=== PATIENT | male | born 1990 | race Hispanic/Latino ===

== ENCOUNTER 2017-11-24 05:18 | Emergency (ER) | payer OTHER ==
[2017-11-24 05:49] LABS: Basophils % (Auto) 0.4 % (0.0-1.8); Eosinophils # (Auto) 0.2 K/mm3 (0.0-0.4); Hemoglobin 14.4 gm/dl (11.8-15.2); Lymphocytes # (Auto) 3.3 K/mm3 (1.2-5.4); Mean Corpuscular HGB Conc 34 % (32-34); Mean Corpuscular Hemoglobin 29 pg (28-32); Mean Corpuscular Volume 86 fl (84-94); Monocytes # (Auto) 0.7 K/mm3 (0.0-0.8); Monocytes % (Auto) 7.5 % (0.0-7.3); Platelet Count 209 K/mm3 (140-440); Red Blood Count 4.98 M/mm3 (3.65-5.03); Red Cell Distribution Width 12.8 % (13.2-15.2)
[2017-11-24 06:04] LABS: Bilirubin,Urine NEG (Negative); Blood,Urine NEG (Negative); Color,Urine Yellow (Yellow); Hyaline Casts,Urine 1 /LPF; Mucus,Urine 1+ /HPF; Protein,Urine <15 mg/dL mg/dL (Negative); Urobilinogen,Urine < 2.0 mg/dL (<2.0)
[2017-11-24 06:06] LABS: Alanine Aminotransferase 27 units/L (7-56); Albumin 4.4 g/dL (3.9-5); BUN/Creatinine Ratio 14; Blood Urea Nitrogen 17 mg/dL (9-20); Calcium 9.5 mg/dL (8.4-10.2); Hemolysis Index 2
[2017-11-24] MEDS ORDERED: LIDOCAINE VISCOUS 2% PO ONE (09:27)
[2017-11-24] MEDS ORDERED: ALUM-MAG HYDROX-SIMETH 200-200-20MG/5ML PO ONE (09:27)
--- NOTE | 2017-11-24 09:30 | Emergency Department Report ---
Chief Complaint: Abdominal Pain Stated Complaint: STOMACH PAIN Time Seen by Provider: 11/24/17 09:22 - HPI History of Present Illness: 27-year-old male presents to the emergency department with complaint of upper to left upper quadrant abdominal pain has been going on for the past week. He has had this issue in the past and says that it has been to this intensity 3 times in the past. He has been taking Bentyl and Protonix which was prescribed for him back in April for similar issues. He has had some nausea with one episode of vomiting. He denies any fever, back pain, dysuria, discharge. No recent travel or sick contacts at home. He does not know of any specific alleviating factors but diet sometimes makes it worse. He has not seen a bulb assembler. - ROS Review of Systems: Positive for abdominal pain, nausea, vomiting Negative for fever, back pain, dysuria, discharge - Exam Vital Signs: Vital Signs 11/24/17 11/24/17 11/24/17 05:17 05:25 09:13 Temperature 97.6 F 97.6 F Pulse Rate 61 61 Respiratory 18 17 16 Rate Blood Pressure 146/92 146/92 O2 Sat by Pulse 98 99 Oximetry Physical Exam: He is resting comfortably in no acute distress. Heart and lungs sounds are normal auscultation. No tenderness to palpation of the abdomen. Normal bowel sounds. MSE screening note: Focused history and physical exam performed. Due to findings the following was ordered: I have reviewed the patient's labs which are unremarkable including a CBC, BMP and urinalysis. He will receive a GI cocktail and will have a 2 view abdominal x-ray. He will need a gastroenterology referral for possible upper EGD and evaluation of Helicobacter pylori. ED Medical Decision Making - Lab Data Result diagrams: 11/24/17 05:06 11/24/17 05:06 ED Disposition for MSE Condition: Stable Referrals: PRIMARY CARE, [Primary Care Provider] - 3-5 Days
[2017-11-24 12:33] VITALS: BP 119/75
--- NOTE | 2017-11-24 12:36 | Emergency Department Report ---
ED Abdominal Pain HPI - General Chief Complaint: Abdominal Pain Stated Complaint: STOMACH PAIN Time Seen by Provider: 11/24/17 09:22 Source: patient Mode of arrival: Ambulatory Limitations: No Limitations - History of Present Illness Initial Comments: This is a 27-year-old male nontoxic, well nourished in appearance, no acute signs of distress presents to the ED with c/o of abdominal pain, nausea, and vomiting x1 week. Patient stated has history of this and was dignsoed with constipation. Patient stated that he has been very gassy and passing gas. Patient stated had a bowel movement yesterday and as very hard. Patient describes abdominal pain as cramping diffusely in the left upper quadrant. Patient stated had 1 episode of vomiting and was food content. Patient stated that he took Bentyl and Protonix with minimal relief. Patient denies any fever , chills, vaginal bleeding, vaginal discharge, urinary symptoms, chest pain, shortness of breathe, radiation of pain. Patient denies any allergies or PMH. MD Complaint: abdominal pain -: week(s) (1) Location: [facility] Radiation: none Migration to: no migration Severity: mild Severity scale (0 -10): 3 Quality: cramping Consistency: intermittent Improves With: nothing Worsens With: nothing Associated Symptoms: nausea, vomiting, constipation. denies: diarrhea, fever, chills, dysuria, hematemesis, hematochezia, melena, hematuria, anorexia, syncope - Related Data Previous Rx's Medication Instructions Recorded Last Taken Type Docusate Sodium [Colace] 100 mg PO BID PRN #30 capsule 11/24/17 Unknown Rx Ibuprofen [Motrin] 600 mg PO Q8H PRN #30 tablet 11/24/17 Unknown Rx Ondansetron [Zofran Odt] 4 mg PO Q8HR PRN #20 tab.rapdis 11/24/17 Unknown Rx Allergies Allergy/AdvReac Type Severity Reaction Status Date / Time No Known Allergies Allergy Unverified 11/24/17 05:28 ED Review of Systems ROS: Stated complaint: STOMACH PAIN Other details as noted in HPI Constitutional: denies: chills, fever Eyes: denies: eye pain, eye discharge, vision change ENT: denies: ear pain, throat pain Respiratory: denies: cough, shortness of breath, wheezing Cardiovascular: denies: chest pain, palpitations Endocrine: no symptoms reported Gastrointestinal: abdominal pain, nausea, vomiting, constipation. denies: diarrhea Genitourinary: denies: urgency, dysuria Musculoskeletal: denies: back pain, joint swelling, arthralgia Skin: denies: rash, lesions Neurological: denies: headache, weakness, paresthesias Psychiatric: denies: anxiety, depression Hematological/Lymphatic: denies: easy bleeding, easy bruising ED Past Medical Hx - Past Medical History Previous Medical History?: No - Surgical History Past Surgical History?: No - Social History Smoking Status: Never Smoker Substance Use Type: None - Medications Home Medications: Home Medications Medication Instructions Recorded Confirmed Last Taken Type Docusate Sodium [Colace] 100 mg PO BID PRN #30 capsule 11/24/17 Unknown Rx Ibuprofen [Motrin] 600 mg PO Q8H PRN #30 tablet 11/24/17 Unknown Rx Ondansetron [Zofran Odt] 4 mg PO Q8HR PRN #20 tab.rapdis 11/24/17 Unknown Rx ED Physical Exam - General Limitations: No Limitations General appearance: alert, in no apparent distress - Head Head exam: Present: atraumatic, normocephalic - Eye Eye exam: Present: normal appearance Pupils: Present: normal accommodation - ENT ENT exam: Present: normal exam, mucous membranes moist - Neck Neck exam: Present: normal inspection, full ROM. Absent: tenderness, meningismus, lymphadenopathy - Respiratory Respiratory exam: Present: normal lung sounds bilaterally. Absent: respiratory distress, wheezes, rales, rhonchi, stridor, chest wall tenderness, accessory muscle use, decreased breath sounds, prolonged expiratory - Cardiovascular Cardiovascular Exam: Present: regular rate, normal rhythm, normal heart sounds. Absent: bradycardia, tachycardia, irregular rhythm, systolic murmur, diastolic murmur, rubs, gallop - GI/Abdominal GI/Abdominal exam: Present: soft, normal bowel sounds. Absent: distended, tenderness, guarding, rebound, rigid, diminished bowel sounds, organomegaly, mass, pulsatile mass, hernia - Expanded GI/Abdominal Exam Expanded GI/Abdominal exam: Absent: psoas sign, obturator sign, heel tap sign, Mack's sign, Rovsing's sign, tenderness at Mcburney's Point, ascites - Rectal Rectal exam: Present: deferred - Extremities Exam Extremities exam: Present: normal inspection, full ROM, normal capillary refill - Back Exam Back exam: Present: normal inspection, full ROM - Neurological Exam Neurological exam: Present: alert, oriented X3, normal gait - Psychiatric Psychiatric exam: Present: normal affect, normal mood - Skin Skin exam: Present: warm, dry, intact, normal color. Absent: rash ED Course Vital Signs 11/24/17 11/24/17 11/24/17 05:17 05:25 09:13 Temperature 97.6 F 97.6 F Pulse Rate 61 61 Respiratory 18 17 16 Rate Blood Pressure 146/92 146/92 Blood Pressure [Left] O2 Sat by Pulse 98 99 Oximetry 11/24/17 12:33 Temperature 98.3 F Pulse Rate 57 L Respiratory 16 Rate Blood Pressure Blood Pressure 119/75 [Left] O2 Sat by Pulse 100 Oximetry - Reevaluation(s) Reevaluation #1: 11/24/17 12:41 Patient is speaking in full sentences with no signs of distress noted. - Consultations Consultation #1: 11/24/17 12:41 Patient has been consulted with Dr. Ortiz about patient history, physical exam, and labs/Abdomen xray and examined and screened patient and agrees to ED plan of care and discharge plan of care. ED Medical Decision Making - Lab Data Result diagrams: 11/24/17 05:06 11/24/17 05:06 - Medical Decision Making This is a 27-year-old male that presents with constipation. Patient stable was examined by me and Dr. Ortiz. After medical treatment with toradol, patient denies any abdominal pain. No rebound tenderness. Abdomen xray obtained and dictated by Dr. Knutson and report was faxed with impression of fecal retention and no acute process. Labs and UA obtained and are unremarkable. Patient received lidocaine visous and anatacid and stated symptoms has resolved and subsided. A by mouth challenge of apple juice had been obtained and patient tolerated well with no nausea vomiting. Patient discharged with Coalce, Zofran and Motrin. Patient was instructed to increase hydration. Patient was referred to Follow-up with a primary care doctor in 3-5 days or if symptoms worsen and continue return to emergency room as soon as possible. At time of discharge, the patient does not seem toxic or ill in appearance. No acute signs of distress noted. Patient agrees to discharge treatment plan of care. No further questions noted by the patient. Critical care attestation.: If time is entered above; I have spent that time in minutes in the direct care of this critically ill patient, excluding procedure time. ED Disposition Clinical Impression: Constipation Qualifiers: Constipation type: unspecified constipation type Qualified Code(s): K59.00 - Constipation, unspecified Nausea & vomiting Qualifiers: Vomiting type: unspecified Vomiting Intractability: non-intractable Qualified Code(s): R11.2 - Nausea with vomiting, unspecified Disposition: TO HOME OR SELFCARE Is pt being admited?: No Does the pt Need Aspirin: No Condition: Stable Instructions: Constipation (ED), High Fiber Diet (ED), Laxative, Stool Softeners (By mouth) Additional Instructions: Follow-up with a primary care doctor in 3-5 days or if symptoms worsen and continue return to emergency room as soon as possible. Prescriptions: Docusate Sodium [Colace] 100 mg PO BID PRN #30 capsule PRN Reason: Constipation Ibuprofen [Motrin] 600 mg PO Q8H PRN #30 tablet PRN Reason: Pain Ondansetron [Zofran Odt] 4 mg PO Q8HR PRN #20 tab.rapdis PRN Reason: Nausea Referrals: PRIMARY CARE, [Primary Care Provider] - 3-5 Days SHANIA DE LA ROSA MD [Staff Physician] - 3-5 Days [facility] [Outside] - 3-5 Days [facility] [Outside] - 3-5 Days Forms: Work/School Release Form(ED)
== END 2017-11-24 12:54 | disposition home or self-care (01) ==
LOC: ED 05:18
DX: K59.00 Constipation, unspecified (principal)
CPT/HCPCS: 36415; 74019; 80053; 81001; 85025